=== PATIENT | female | born 1965 | race Hispanic/Latino ===

== ENCOUNTER 2020-01-13 16:03 | Outpatient (CLI) | payer OTHER ==
--- NOTE | 2020-01-13 16:20 | RAD ---
EXAM: CHEST TWO VIEWS: 01/13/20 HISTORY: Acute bronchitis, cough for two months. COMPARISON: 01/28/07. FINDINGS: Lap band in place. Minimal increased density in the retrocardiac region adjacent to the descending th oracic aorta probably related to some dilatation of the distal esophagus/gastric pouch above the leve l of the lap band. No confluent pneumonia, overt edema, or pleural effusion. IMPRESSION: Double density in the central retrocardiac region and adjacent to the descending thoracic aorta which I feel probably represents a dilated gastric polyp/distal esophagus. If that is a concern, follow-up gastrografin swallow might be considered. No evidence for other acute process. POS: [facility]
== END 2020-01-13 16:04 | disposition home or self-care (01) ==
LOC: BICRAD 16:03
PROVIDERS: ATTEND Family Medicine
DX: J20.9 Acute bronchitis, unspecified (principal); R93.89 Abnormal findings on diagnostic imaging of other specified body structures
CPT/HCPCS: 71046

== ENCOUNTER 2020-05-27 11:48 | Observation (INO) | payer OTHER, SELFPAY ==
[2020-05-27] MEDS ORDERED: Pantoprazole 40 MG VIAL ONE (12:42)
[2020-05-27] MEDS ORDERED: Ondansetron PF 4 MG/2 ML Vial ONE (12:43)
--- NOTE | 2020-05-27 12:55 | CT ---
EXAM: CT ABDOMEN AND PELVIS HISTORY: Lap band in [place]. Fluid removed by someone in [place] yesterday. Sharp pain radiating to the back f rom the epigastrium. COMPARISON: None.. Procedure: Multiple contiguous axial images were obtained and a CT of the abdomen and pelvis with IV contrast. C oronal reformats were performed. FINDINGS: Lower Chest: within normal limits. Vessels: Normal caliber aorta. No periaortic fat stranding. Heart: Normal heart size. Abdomen: Portal vein:Patent. Gallbladder: No calcified gallstones. Normal caliber wall. Liver: within normal limits. Pancreas: within normal limits. Spleen: within normal limits. Adrenals: within normal limits. Kidneys: Symmetric enhancement. No obstructive uropathy. Peritoneum: No ascites or free air, no fluid collection. Bowel: Limited evaluation of the alimentary canal due to lack of adequate oral contrast opacification . The majority of the ingested contrast is still in the distended distal thoracic esophagus. A small amount of contrast has passed into the stomach. Multiple normal caliber small bowel loops. Norm al ileocecal junction. Normal caliber appendix. Scattered fecal material in a nondistended, nondilated colon. Occasional diverticulum. No diverticulitis. Mesentery and Retroperitoneum: No enlarged mesenteric or retroperitoneal lymph nodes. Abdominal Wall: within normal limits. Pelvis: Reproductive Organs: Reproductive organs are unremarkable. Pelvis: No mass, lymphadenopathy, free air or free fluid. Bladder: within normal limits. Bones: Remote L1 compression fracture with mild loss of vertebral body height and mild retropulsion. IMPRESSION: Marked delay in passage of oral contrast in the visualized thoracic esophagus. Though the history sta roni that the patient's gastric lap band was decompressed, findings would suggest significant delay in passage at the level of the gastric lap band. Results of the study discussed with Dr. Kemar Lindsey 05/27/2020 12:54 PM Code CR Transcribed Date/Time: 05/27/2020 1:26 PM
[2020-05-27 13:20] LABS: #Basophils 0.1 thou/uL (0.0-0.2); #Eosinphils 0.1 thou/uL (0.0-0.7); #Lymphocytes 1.8 thou/uL (1.20-3.40); #Monocytes 0.4 thou/uL (0.11-0.59); #Neutrophils 3.9 thou/uL (1.40-6.50); %Eosinophils 1.1 % (0.0-10.0); %Lymphocytes 28.9 % (21.0-51.0); %Monocytes 5.7 % (0.0-10.0); %Neutrophils 63.3 % (42.0-75.0); Hemoglobin 13.1 g/dL (12.0-16.0); Mean Corpuscular HGB CONC 33.9 g/dL (32.0-36.0); Mean Corpuscular Hemoglobin 31.1 pg (27.0-31.0); Mean Corpuscular Volume 91.8 fL (78.0-98.0); Mean Platelet Volume 7.2 fL (7.4-10.4); Platelet Count 261 thou/uL (130-400); RBC Distribution Width 12.1 % (11.5-14.5); Red Blood Cell (RBC) Count 4.21 mill/uL (4.20-5.40); White Blood Cell (WBC) Count 6.1 thou/uL (4.8-10.8)
--- NOTE | 2020-05-27 13:22 | RAD ---
PORTABLE CHEST 1 VIEW: DATE: 05/27/2020. TIME: 1:10 PM. HISTORY: Epigastric pain, left-sided chest pain. COMPARISON: 05/24/2020. FINDINGS: The heart size is normal. The aorta is tortuous. No lobar consolidation, pneumothoraces, or pleural effusions are seen. IMPRESSION: No acute process. POS: [facility]
[2020-05-27 13:43] LABS: ALT (SGPT) 37 U/L (8-55); AST (SGOT) 27 U/L (5-34); Albumin 3.7 g/dL (3.5-5.0); Alkaline Phosphatase 62 U/L (40-110); Anion Gap 12 mmol/L (10-20); BUN (Urea Nitrogen) 13 mg/dL (9.8-20.1); Bilirubin, Total 0.5 mg/dL (0.2-1.2); CK (CPK) 72 U/L (29-168); Calc. Creatinine Clearance 0 mL/min (70-130); Calcium 8.2 mg/dL (7.8-10.44); Carbon Dioxide 29 mmol/L (22-29); Chloride 102 mmol/L (98-107); Globulin 2.2 g/dL (2.4-3.5); Glucose 91 mg/dL (70-105); Lipase 54 U/L (8-78); Potassium 3.9 mmol/L (3.5-5.1); Protein, Total 5.9 g/dL (6.0-8.3); Sodium 139 mmol/L (136-145)
[2020-05-27] MEDS ORDERED: Morphine 4 MG/ML VIAL ONE ×2 (14:26→16:43)
[2020-05-27] MEDS ORDERED: Iopamidol-370 76% 500 ML 1 ML ONE (15:18)
--- NOTE | 2020-05-27 17:04 | HP ---
CHIEF COMPLAINT: Dysphagia with lap band. HISTORY OF PRESENT ILLNESS: This is a 54-year-old female who presents with a history of lap band placed in [place] in 2005. Yesterday, a physician in [place] pulled some saline out due to severe dysphagia. She had aborted surgery last week at the [facility] by Dr. Rodriguez, where she was found to have retained food contents in her esophagus and with high risk for aspiration. She notes after having saline taken out yesterday, she is still not able to tolerate much p.o., seen in emergency department today. Chest x-ray shows correct orientation of the lap band. CT scan shows very little contrast getting through it. The patient would prefer to have her lap band removed. She had some pain in her chest today, but no consistent odynophagia or hematemesis. 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 PAST SURGICAL HISTORY: Lap band. MEDICATIONS: Taken daily, none. ALLERGIES: NO KNOWN DRUG ALLERGIES. SOCIAL HISTORY: No smoking, alcohol, or other drugs. REVIEW OF SYSTEMS: Ten-system review of systems is otherwise negative unless described above. PHYSICAL EXAMINATION: HEENT: Sclerae anicteric. Oropharynx clear. NECK: No lymphadenopathy. CHEST: Clear. HEART: Regular rate. ABDOMEN: Soft. Well-healed abdominal incisions without hernia. The lap band port to the left of umbilicus. No ischemia or edema to extremities. IMAGING STUDIES: CT scan as above. PROCEDURE: Lap band port is cannulated using a Edmond needle under sterile technique. 3 mL of saline is able to be removed. 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 PLAN: Admit to the hospital, IV fluid, clear liquids and removed lap band after COVID test negative, that procedure would be laparoscopic. Risks, benefits, and alternatives discussed. She gives consent. Job ID: [id number]
[2020-05-27] MEDS ORDERED: Ondansetron ODT 4 MG TAB SL PRN (17:45)
[2020-05-27] MEDS ORDERED: Acetaminophen 325 MG TAB PO PRN (17:45)
[2020-05-27] MEDS ORDERED: Ondansetron PF 4 MG/2 ML Vial IVP PRN ×2 (17:45→18:15)
[2020-05-27] MEDS ORDERED: Morphine 4 MG/ML VIAL SLOW IVP PRN (18:15)
[2020-05-27] MEDS ORDERED: Dextrose 5% in Water 1,000 ML IV PRN (18:15)
[2020-05-27] MEDS ORDERED: Dextrose 50% Abboject 50 ML SYRINGE SLOW IVP PRN (18:15)
[2020-05-27] MEDS ORDERED: Promethazine HCl 25 MG/ML VIAL IM PRN (18:15)
[2020-05-27] MEDS ORDERED: hydrALAZINE 20 MG/ML VIAL SLOW IVP PRN (18:15)
[2020-05-27 18:22] VITALS: BMI 21.7
[2020-05-27] MEDS ORDERED: Albuterol 200 PUFF (6.7GM INHALER) INH PRN (18:22)
[2020-05-27] MEDS: D5 1/2 NS w/20 mEq KCL 1,000 ML IV SCH (19:48)
[2020-05-27] MEDS: Pantoprazole 40 MG VIAL IVP SCH (19:48)
[2020-05-27] MEDS: Hydrocodone-Acetamin 15 ML UDCUP PO PRN (19:51)
[2020-05-27] MEDS: Lactated Ringer's 1,000 ML IV SCH (21:17)
[2020-05-28] MEDS: Lactated Ringer's 1,000 ML IV SCH (02:46)
[2020-05-28] MEDS: Hydrocodone-Acetamin 15 ML UDCUP PO PRN ×3 (04:07→17:18)
[2020-05-28] MEDS: D5 1/2 NS w/20 mEq KCL 1,000 ML IV SCH ×3 (04:08→17:19)
[2020-05-28] MEDS: Pantoprazole 40 MG VIAL IVP SCH ×2 (08:37→20:46)
--- NOTE | 2020-05-28 09:26 | PRG ---
DATE OF SERVICE: 05/28/2020 SUBJECTIVE: Ms. Torres has no complaints. No real vomiting overnight with the clear liquids. She is afebrile. Vital signs are stable. Her abdomen is soft and nontender. ASSESSMENT: Laparoscopic band obstruction status post decompression with persistent symptoms. PLAN: Await COVID negative result. Planned laparoscopic removal of band tomorrow. Job ID: [id number]
[2020-05-28] MEDS: Morphine 2 MG/ML VIAL SLOW IVP PRN ×2 (14:07→20:45)
[2020-05-28 20:42] LABS: SARS-CoV-2 MS2 Positive; SARS-CoV-2 N Gene Negative; SARS-CoV-2 S Gene Negative; SARS-CoV-2 by NAA Not Detected (NotDetected); SARS-CoV-2 orf1ab Negative
[2020-05-28] MEDS ORDERED: FLU VACC QS2020-21(6MOS UP)/PF 60 MCG/0.5 ML SYRINGE IM ONE (21:00)
[2020-05-29] MEDS: D5 1/2 NS w/20 mEq KCL 1,000 ML IV SCH (03:08)
[2020-05-29] MEDS ORDERED: Fentanyl 100 MCG/2 ML VIAL ONE (07:22)
[2020-05-29] MEDS ORDERED: Bupivacaine 0.25% HCL 30 ML VIAL ONE (07:43)
[2020-05-29] MEDS ORDERED: Lidocaine 1% w/Epinephrine 1:100K 20 ML VIAL ONE (07:43)
[2020-05-29] MEDS ORDERED: Midazolam HCl 2 mg/2 ml Vial ONE (07:50)
[2020-05-29] MEDS ORDERED: Ondansetron ODT 4 MG TAB ONE (07:55)
[2020-05-29] MEDS: Pantoprazole 40 MG VIAL IVP SCH (09:13)
[2020-05-29] MEDS ORDERED: Morphine 4 MG/ML VIAL SLOW IVP PRN (09:40)
[2020-05-29] MEDS ORDERED: Morphine 2 MG/ML VIAL SLOW IVP PRN (09:40)
[2020-05-29] MEDS ORDERED: Dextrose 50% Abboject 50 ML SYRINGE SLOW IVP PRN (09:40)
[2020-05-29] MEDS ORDERED: hydrALAZINE 20 MG/ML VIAL SLOW IVP PRN (09:40)
[2020-05-29] MEDS ORDERED: Hydrocodone-Acetamin 15 ML UDCUP PO PRN (09:40)
[2020-05-29] MEDS ORDERED: Ondansetron PF 4 MG/2 ML Vial IVP PRN (09:40)
[2020-05-29] MEDS ORDERED: Dextrose 5% in Water 1,000 ML IV PRN (09:40)
[2020-05-29] MEDS ORDERED: D5 1/2 NS w/20 mEq KCL 1,000 ML IV SCH (09:40)
[2020-05-29] MEDS ORDERED: Acetaminophen 650 MG Suppository PR PRN (09:40)
[2020-05-29] MEDS ORDERED: Promethazine HCl 25 MG/ML VIAL IM PRN (09:40)
[2020-05-29] MEDS ORDERED: D5 1/2 NS w/20 mEq KCL 1,000 ML ONE (09:41)
[2020-05-29] MEDS ORDERED: Rocuronium Bromide 10 MG/ML (10ML VIAL) ONE (13:20)
[2020-05-29] MEDS ORDERED: Glycopyrrolate 0.2 MG/ML 5 ML SYRINGE ONE (13:20)
[2020-05-29] MEDS ORDERED: PROPOFOL 200 MG/20 ML VIAL ONE (13:20)
[2020-05-29] MEDS ORDERED: Dexamethasone 20 MG/5 ML VIAL ONE (13:20)
[2020-05-29] MEDS ORDERED: Lidocaine 1% PF 5 ML VIAL ONE (13:20)
[2020-05-29 17:08] VITALS: BP 100/62; TEMP 97.6
[2020-05-29] MEDS ORDERED: Famotidine 20 MG TAB PO SCH (21:00)
[2020-05-29] MEDS ORDERED: Famotidine/PF 20 mg/2ml Vial SLOW IVP SCH (21:00)
--- NOTE | 2020-05-29 21:23 | OP ---
DATE OF PROCEDURE: 05/29/2020 PREOPERATIVE DIAGNOSIS: Complication of previous laparoscopic gastric band with gastric outlet obstruction. POSTOPERATIVE DIAGNOSIS: Complication of previous laparoscopic gastric band with gastric outlet obstruction. PROCEDURE: Removal of gastric band and subcutaneous port. ANESTHESIA: General. ESTIMATED BLOOD LOSS: Minimal. COMPLICATIONS: None. FINDINGS: The postop EGD shows no significant residual stenosis of the band location. The band was able to be completely reconstructed on the back table with tubing and port. DESCRIPTION OF PROCEDURE: The patient was taken to the operating room and laid supine on the operating table. After general anesthetic was obtained, OG-tube was used to decompress the stomach. The abdomen was prepped and draped in a sterile fashion. Left subcostal 5-mm Optiview trocar placed in usual fashion. High-flow pneumoperitoneum obtained. A 12 mm port was placed above the port site and a 5 mm incisions placed in the right abdomen. The patient was placed in reverse Trendelenburg position. There were some adhesions in the upper abdomen around the port tubing. These were taken down carefully using sharp dissection. The lap band buckle was found. The scar tissue on top was cauterized exposing the place where it can be unbuckled. Since it is an original lap band, it is not able to be unbuckled, so it was cut just on the patient's right of the buckle. The band was able to be removed from around the stomach. It was removed from the 12 mm port site. The tubing had been cut just as it exits the abdomen. There was no bleeding. No evidence of gastric contents leakage. EGD scope was passed through the esophagus and stomach to the level of duodenum then without evidence of significant obstruction. There was a fold of the stomach in the area of previous lap band, but there was no evidence of mucosal breakdown or erosion. EGD scope was used to decompress the stomach. It was pulled and removed. All port sites were infiltrated using local anesthetic. All ports were removed under camera visualization. Pneumoperitoneum was let down. The GraNee needle 0-Vicryl tie had been used to close the fascial defect at the port site incision. This incision was enlarged slightly and the lap band port is removed with its small amount residual tubing. The lap band and port are able to be completely reconstructed on the back table. All components were accounted for. This wound was irrigated and closing through Vicryl 4-0 Monocryl and Dermabond. The other incisions were closed using four Monocryl and Dermabond. The patient was sent to Recovery in stable condition. All instrument counts, needle counts, lap counts were correct. Job ID: [id number]
--- NOTE | 2020-05-31 13:32 | DIS ---
DATE OF ADMISSION: 05/27/2020 DATE OF DISCHARGE: 05/29/2020 ADMIT DIAGNOSIS: Mechanical complication of lap band dysphagia. POSTOPERATIVE DIAGNOSIS: Mechanical complication of lap band dysphagia. PROCEDURES: Laparoscopic band and port removal by Dr. Junior without complication. CONDITION ON DISCHARGE: Improved. STAFF: Willi Junior MD HOSPITAL COURSE: The patient is a 54-year-old female status post lap band placement in [place], presents with severe dysphagia. All saline had already been removed from the band. She underwent an urgent removal of the lap band and its port secondary to obstruction. Postop, she did well. She was tolerating a liquid diet. She was discharged home. She will follow up with me in the office in 2 weeks. Job ID: [id number]
== END 2020-05-29 17:16 | disposition home or self-care (01) ==
LOC: ERS 11:48 → SURG B 15:54 → INTOOBSV 15:54
PROVIDERS: ADMIT Surgery; ATTEND Surgery
PROC: 0DP64CZ Removal of Extraluminal Device from Stomach, Percutaneous Endoscopic Approach (ICD-10-PCS; principal; 2020-05-29)
PROC: 0DJ08ZZ Inspection of Upper Intestinal Tract, Via Natural or Artificial Opening Endoscopic (ICD-10-PCS; 2020-05-29)
DX: K95.09 Other complications of gastric band procedure (principal); K31.89 Other diseases of stomach and duodenum; R13.10 Dysphagia, unspecified; Z20.828 Contact with and (suspected) exposure to other viral communicable diseases
CPT/HCPCS: 36415; 71045; 74177; 80053; 82550; 83690; 84484; 85025; 87635; 93005; 96374; 96375; 96376; C9113; G0378; J0690; J1100; J2250; J2270; J2405; J2704; J3010; J3480; Q0162; Q9967; S0020; U0003

== ENCOUNTER 2022-01-24 14:02 | Outpatient (CLI) | payer OTHER | END 2022-01-24 14:03 | disposition home or self-care (01) | LOC: BICULT 14:02 | PROVIDERS: ATTEND Family Medicine | DX: I82.402 Acute embolism and thrombosis of unspecified deep veins of left lower extremity (principal) ==